=== PATIENT | female | born 1955 | race American Indian/Alaskan Native ===

== ENCOUNTER 2016-11-19 17:47 | Emergency (ER) | payer MEDICAID ==
[2016-11-19 18:08] VITALS: BP 138/89
--- NOTE | 2016-11-19 18:12 | Emergency Department Report ---
ED General Adult HPI - General Chief complaint: Skin Rash Stated complaint: ITCHING SKIN CONDITION Time Seen by Provider: 11/19/16 18:01 Source: patient Mode of arrival: Ambulatory Limitations: No Limitations - History of Present Illness Initial comments: PT states she left her psoriasis medication in [facility]. PT c/o itchy dry rash to groin and extremities. PT states she has been on steroids for this before and it helped. MD Complaint: rash -: Gradual, days(s) Location: pelvis, left, right, upper extremity, lower extremity Severity scale (0 -10): 8 Quality: constant Consistency: constant Improves with: medication (but pt does not have her clobetasol ) Associated Symptoms: rash. denies: fever/chills, loss of appetite, nausea/ vomiting - Related Data Previous Rx's Medication Instructions Recorded Last Taken Type Salicylic Acid/[place] Tar [Tarsum 236 ml TP QDAY #1 liquid 09/02/14 Unknown Rx Gel-Shampoo] methOCARBAMOL [Robaxin] 500 mg PO BID #14 tab 09/02/14 Unknown Rx Clobetasol Propionate/Emoll 1 applicatio TP BID 14 Days 11/19/16 Unknown Rx [Clobetasol Emollient 0.05% Crm] hydrOXYzine PAMOATE [Vistaril] 25 mg PO Q6HR PRN #12 capsule 11/19/16 Unknown Rx methylPREDNISolone [Medrol] 4 mg PO DAILY #1 tab.ds.pk 11/19/16 Unknown Rx Allergies Allergy/AdvReac Type Severity Reaction Status Date / Time aspirin Allergy Shortness Verified 09/02/14 16:23 of Breath ibuprofen [From Motrin] Allergy Shortness Verified 09/02/14 16:23 of Breath Penicillins Allergy Unknown Verified 09/02/14 16:23 ED Review of Systems ROS: Stated complaint: ITCHING SKIN CONDITION Other details as noted in HPI Comment: All other systems reviewed and negative Constitutional: denies: fever Cardiovascular: denies: chest pain Gastrointestinal: denies: abdominal pain Musculoskeletal: back pain (from previous fx. ) Skin: rash, change in color, pruritus ED Past Medical Hx - Past Medical History Previous Medical History?: Yes Hx Hypertension: Yes Hx Arthritis: Yes Hx COPD: Yes Additional medical history: PSORIASIS, T12 fracture from [place] in [place] - Surgical History Hx Cholecystectomy: Yes Additional Surgical History: . hysterectomy - Social History Smoking Status: Current Every Day Smoker Substance Use Type: None - Medications Home Medications: Home Medications Medication Instructions Recorded Confirmed Last Taken Type Salicylic Acid/[place] Tar [Tarsum 236 ml TP QDAY #1 liquid 09/02/14 Unknown Rx Gel-Shampoo] methOCARBAMOL [Robaxin] 500 mg PO BID #14 tab 09/02/14 Unknown Rx Clobetasol Propionate/Emoll 1 applicatio TP BID 14 Days 11/19/16 Unknown Rx [Clobetasol Emollient 0.05% Crm] hydrOXYzine PAMOATE [Vistaril] 25 mg PO Q6HR PRN #12 capsule 11/19/16 Unknown Rx methylPREDNISolone [Medrol] 4 mg PO DAILY #1 tab.ds.pk 11/19/16 Unknown Rx ED Physical Exam - General Limitations: No Limitations General appearance: alert, in no apparent distress - Head Head exam: Present: atraumatic, normocephalic, normal inspection - Eye Eye exam: Present: normal appearance, PERRL, EOMI. Absent: conjunctival injection, nystagmus - ENT ENT exam: Present: normal exam, mucous membranes moist, normal external ear exam - Neck Neck exam: Present: normal inspection, full ROM. Absent: tenderness - Respiratory Respiratory exam: Absent: respiratory distress, chest wall tenderness - Cardiovascular Cardiovascular Exam: Present: regular rate, normal rhythm - GI/Abdominal GI/Abdominal exam: Present: other (rash noted ). Absent: soft, tenderness - Extremities Exam Extremities exam: Present: full ROM. Absent: normal inspection (dry scaly rash in patches to ext ), tenderness, pedal edema, calf tenderness - Back Exam Back exam: Present: full ROM, rash noted. Absent: tenderness - Neurological Exam Neurological exam: Present: alert, oriented X3, normal gait - Psychiatric Psychiatric exam: Present: normal affect, normal mood - Skin Skin exam: Present: warm, dry, rash. Absent: intact, normal color - Expanded Skin Exam Expanded Distribution of rash: generalized Description of rash: Present: other (scaly ). Absent: urticarial, discharge ED Course Vital Signs 11/19/16 18:02 Temperature 98.4 F Pulse Rate 99 H Respiratory 18 Rate Blood Pressure 138/89 O2 Sat by Pulse 99 Oximetry - Reevaluation(s) Reevaluation #1: 11/19/16 18:13 PT aware of dx and plan of care. PT has no questions at this time. - Pulse Oximetry Interpretation Digit-Finger Initial Pulse Oximetry Readin Actions Taken: none ED Medical Decision Making - Differential Diagnosis rash, psoriasis Critical Care Time: No Critical care attestation.: If time is entered above; I have spent that time in minutes in the direct care of this critically ill patient, excluding procedure time. ED Disposition Clinical Impression: Rash, Psoriasis Disposition: DC- TO HOME OR SELFCARE Is pt being admited?: No Does the pt Need Aspirin: No Condition: Stable Instructions: Psoriasis (ED), Acute Rash (ED) Additional Instructions: No driving or alcohol after taking Vistaril Follow up with PCP in 3-5 days Return to ED if signs of skin infection (redness, drainage, fevers) Prescriptions: Clobetasol Propionate/Emoll [Clobetasol Emollient 0.05% Crm] 1 applicatio TP BID 14 Days hydrOXYzine PAMOATE [Vistaril] 25 mg PO Q6HR PRN #12 capsule PRN Reason: Itching methylPREDNISolone [Medrol] 4 mg PO DAILY #1 tab.ds.pk Referrals: LI PEARSON MD [Staff Physician] - 3-5 Days Time of Disposition: 18:17
== END 2016-11-19 18:43 | disposition home or self-care (01) ==
LOC: ED 17:47
DX: L40.9 Psoriasis, unspecified (principal); I10 Essential (primary) hypertension; J44.9 Chronic obstructive pulmonary disease, unspecified; F17.200 Nicotine dependence, unspecified, uncomplicated
CPT/HCPCS: 99281